=== PATIENT | male | born 1990 | race Hispanic/Latino ===

== ENCOUNTER 2017-02-12 12:26 | Emergency (ER) | payer MEDICAID, OTHER ==
[~2017-02-12] VITALS: Ht 167.6 cm; Wt 65.8 kg
[2017-02-12 12:29] VITALS: BP 150/100
[2017-02-12] MEDS ORDERED: LORazepam Inj 2mg/ml 1ml IV ONE (13:00)
[2017-02-12 13:34] LABS: BASOPHILS % (AUTO) 1.8 % (0.0-2.0); EOSINOPHILS % (AUTO) 0.9 % (0.0-3.0); LYMPHOCYTES % (AUTO) 20.3 % (20.0-45.0); MEAN CORPUSCULAR HEMOGLOBIN 28.4 PG (27.0-31.0); MEAN CORPUSCULAR HGB CONC 33.5 G/DL (32.0-36.0); MEAN CORPUSCULAR VOLUME 85 FL (80-99); MEAN PLATELET VOLUME 7.1 FL (6.5-10.1); MONOCYTES % (AUTO) 5.7 % (1.0-10.0); NEUTROPHILS % (AUTO) 71.3 % (45.0-75.0); PLATELET COUNT 236 K/UL (150-450); RED BLOOD COUNT 4.92 M/UL (4.70-6.10); RED CELL DISTRIBUTION WIDTH 12.1 % (11.6-14.8); WHITE BLOOD COUNT 5.5 K/UL (4.8-10.8)
[2017-02-12 13:55] LABS: TROPONIN I < 0.30 ng/mL (<=0.30)
[2017-02-12 13:59] LABS: ALANINE AMINOTRANSFERASE 12 U/L (3-41); ANION GAP 14 (5-15); ASPARTATE AMINO TRANSFERASE 18 U/L (5-40); CALCIUM 9.8 mg/dL (8.6-10.2); CARBON DIOXIDE 27 mEQ/L (20-30); CHLORIDE 99 mEQ/L (98-107); CREATININE 0.8 mg/dL (0.7-1.2); GLOMERULAR FILTRATION RATE > 60 mL/min (>60); HEMOLYSIS 6; POTASSIUM 3.4 mEQ/L (3.4-4.9); SODIUM 140 mEQ/L (135-145); TOTAL PROTEIN 7.1 g/dL (6.6-8.7)
[2017-02-12 14:09] LABS: CKMB 3.9 ng/mL (< 6.7)
--- NOTE | 2017-02-12 14:24 | Emergency Room Report ---
History of Present Illness General Chief Complaint: General Complaint Source: Patient Present Illness HPI 26YOM presents with chest pain s/p "doing meth for 3 days." Snorted it. Denies ETOH, other drugs. Denies other medical problems, CAD risk factors. Denies cocaine use. Denies SOB, fever/chills, abd pain, nausea/vomiting. Is in good health otherwise. Allergies: Coded Allergies: No Known Allergies (Unverified , 02/12/17) Patient History Past Medical History: none Past Surgical History: none Pertinent Family History: none Social History: Reports: drug use Immunizations: UTD Reviewed Nursing Documentation: PMH: Agreed, PSxH: Agreed Nursing Documentation-PMH Past Medical History: No Stated History Review of Systems All Other Systems: negative except mentioned in HPI Physical Exam Vital Signs Date Time Temp Pulse Resp B/P Pulse Ox O2 Delivery O2 Flow Rate FiO2 02/12/17 12:23 98.1 108 18 150/100 99 Room Air Sp02 EP Interpretation: reviewed, abnormal General Appearance: normal inspection, well appearing, no apparent distress, alert, GCS 15, non-toxic, other - calm, cooperative Head: normocephalic, atraumatic Eyes: bilateral eye EOMI, bilateral eye PERRL ENT: normal ENT inspection, hearing grossly normal, normal voice Neck: normal inspection, full range of motion, supple, no bony tend Respiratory: normal inspection, lungs clear, normal breath sounds, no respiratory distress, no retraction, no accessory muscle use, no wheezing, speaking full sentences, chest symmetrical, palpation of chest normal Cardiovascular #1: normal peripheral pulses, regular rate, rhythm, no edema, normal capillary refill Gastrointestinal: normal inspection, normal bowel sounds, non tender, soft, no guarding, no hernia Genitourinary: no CVA tenderness Musculoskeletal: normal inspection, back normal, normal range of motion, Oscar' s Sign negative Neurologic: normal inspection, alert, oriented x3, responsive, auto parts clerk III-XII nml as tested, motor strength/tone normal, speech normal Psychiatric: normal inspection, judgement/insight normal, mood/affect normal Skin: normal inspection, normal color, no rash Lymphatic: normal inspection Medical Decision Making Diagnostic Impression: Primary Impression: Chest pain Qualified Codes: R07.9 - Chest pain, unspecified Additional Impression: Methamphetamine abuse ER Course 26YOM with chest pain s/p meth use. Initial VS with tachycardia and hypertension likely d/t meth use No CAD risk factors ECG is NSR, no ischemia Mild rhabo with CK 213 but without accompanying SHIVA - was hydrated with NS IVF Troponin 0 Ativan given to counteract agitation effects of meth Patient observed with improvement/resolution of symptoms DC home Advised to STOP meth use in the future EKG Diagnostic Results Rate: normal Rhythm: NSR ST Segments: no acute changes ASA given to the pt in ED: No Rhythm Strip Diag. Results EP Interpretation: yes Rate: 68 Rhythm: NSR, no PVC's, no ectopy Chest X-Ray Diagnostic Results EP Interpretation: Yes Findings: no consolidation, no effusion, no pneumothorax, no acute cardiopulmonary disease Number of Views: 1 Last Vital Signs Date Time Temp Pulse Resp B/P Pulse Ox O2 Delivery O2 Flow Rate FiO2 02/12/17 12:29 98.1 18 150/100 99 Room Air 02/12/17 12:23 108 Status: improved Disposition: HOME, SELF-CARE [facility]errals: [facility]ERR[facility] (PCP) GIRISH MORILLO M.D. February 12, 2017 14:24
[2017-02-12 14:35] VITALS: BP 110/79
[2017-02-12 17:12] VITALS: BP 121/74
--- NOTE | 2017-02-13 10:55 | Diagnostic Imaging Report ---
Indication: Chest pain Technique: One view of the chest Comparison: 11/30/2008 Findings: Lungs and pleural spaces are clear. Heart size is normal. No significant change Impression: No acute process
== END 2017-02-12 17:17 | disposition home or self-care (01) ==
LOC: EDBD 12:26 → EMR 12:57
DX: R07.9 Chest pain, unspecified (principal); F15.10 Other stimulant abuse, uncomplicated
CPT/HCPCS: 36415; 71010; 80053; 80300; 82550; 82553; 84484; 85025; 93005; 96360; 96374

== ENCOUNTER 2017-07-05 10:53 | Emergency (ER) | payer OTHER ==
[~2017-07-05] VITALS: Ht 160 cm; Wt 59.0 kg
[2017-07-05] MEDS ORDERED: Lidocaine 2% Visc 15ml soln ORAL ONE (11:15)
[2017-07-05] MEDS ORDERED: Dicyclomine HCl 10mg/5ml oral soln ORAL ONE (11:15)
[2017-07-05] MEDS ORDERED: Mylanta II UD 30ml ORAL ONE (11:15)
[2017-07-05 11:37] LABS: APPEARANCE,URINE CLEAR; KETONES,URINE 1+ (NEGATIVE); LEUKOCYTE ESTERASE ,URINE 1+ (NEGATIVE); NITRITE,URINE NEGATIVE (NEGATIVE); PH,URINE 8 (4.5-8.0); PROTEIN,URINE NEGATIVE (NEGATIVE); UROBILINOGEN,URINE NORMAL MG/DL (0.0-1.0)
[2017-07-05 11:38] LABS: BASOPHILS % (AUTO) 1.6 % (0.0-2.0); EOSINOPHILS % (AUTO) 1.1 % (0.0-3.0); LYMPHOCYTES % (AUTO) 29.3 % (20.0-45.0); MEAN CORPUSCULAR HGB CONC 33.2 G/DL (32.0-36.0); MEAN CORPUSCULAR VOLUME 87 FL (80-99); MEAN PLATELET VOLUME 7.1 FL (6.5-10.1); MONOCYTES % (AUTO) 5.8 % (1.0-10.0); NEUTROPHILS % (AUTO) 62.1 % (45.0-75.0); PLATELET COUNT 273 K/UL (150-450); RED BLOOD COUNT 5.23 M/UL (4.70-6.10); RED CELL DISTRIBUTION WIDTH 11.8 % (11.6-14.8); WHITE BLOOD COUNT 6.4 K/UL (4.8-10.8)
[2017-07-05] MEDS ORDERED: PEPCID40 MG PO (11:41)
--- NOTE | 2017-07-05 11:42 | Emergency Room Report ---
History of Present Illness General Chief Complaint: Abdominal Pain Source: Patient Present Illness HPI 27-year-old male with history of alcohol abuse p/w abdominal pain one day. Patient states pain started after he drank a lot of alcohol, localized to epigastric area, non radiating, burning in nature, intermittent. No relieving or exacerbating factors. Severity is mild. Denies nausea vomiting diarrhea Denies fever, chills. No hx of abdominal surgeries. No hx of endoscopies/colonoscopies.. Patient states that he has felt a similar pain many times before Allergies: Coded Allergies: No Known Allergies (Unverified , 02/12/17) Patient History Past Medical History: see triage record Past Surgical History: none Pertinent Family History: none Reviewed Nursing Documentation: PMH: Agreed, PSxH: Agreed Nursing Documentation-PMH Past Medical History: No History, Except For Hx Gastrointestinal Problems: Yes - GERD Review of Systems All Other Systems: negative except mentioned in HPI Physical Exam Vital Signs Date Time Temp Pulse Resp B/P (MAP) Pulse Ox O2 Delivery O2 Flow Rate FiO2 07/05/17 10:57 98.2 98 20 132/89 99 Room Air Sp02 EP Interpretation: reviewed, normal General Appearance: alert, GCS 15, non-toxic, mild distress Head: normocephalic, atraumatic Eyes: bilateral eye normal inspection, bilateral eye PERRL, bilateral eye EOMI ENT: normal ENT inspection, normal pharynx, normal voice, moist mucus membranes Neck: normal inspection, full range of motion, supple Respiratory: normal inspection, lungs clear, normal breath sounds, no respiratory distress, no retraction, no wheezing, speaking full sentences, chest symmetrical Cardiovascular #1: normal inspection, regular rate, rhythm, no edema, normal capillary refill Cardiovascular #2: 2+ radial (R), 2+ radial (L) Gastrointestinal: soft, non-distended, no guarding, other - Soft, mild epigastric tenderness, Ibrahim sign negative, nontender all other quadrants Genitourinary: no CVA tenderness Musculoskeletal: normal inspection, back normal, normal range of motion, non- tender Neurologic: normal inspection, alert, oriented x3, responsive, motor strength/ tone normal, sensory intact, normal gait, speech normal Psychiatric: normal inspection, judgement/insight normal, memory normal Skin: normal inspection, normal color, no rash, warm/dry, well hydrated, normal turgor Medical Decision Making Diagnostic Impression: Primary Impression: Epigastric abdominal pain ER Course 27-year-old male history of alcohol abuse with epigastric abdominal pain Differential Diagnosis: Gastritis, gastroenteritis, UTI/pyelo At this time abdomen is soft nontender, not likely to have acute intra- abdominal surgical pathology, will hold CT for now. Plan: Basic labs, ua, ekg Pepcid, maalox, pain control, IVF ER course: Patient has remained stable during ED stay. Pain improved. Repeat abdominal exam is nontender. Tolerating PO Disposition: Patient is to be discharged to home. Prescriptions given are Pepcid Patient is instructed to follow up with their primary care doctor within 5 days. Strict return precautions discussed with patient such as fever, chills, worsening/severe abdominal pain, nausea, vomiting, black or bloody stools, which may indicate severe illness. Patient verbalizes understanding and agrees with plan. Please note that this Emergency Department Report was dictated using [employer] superintendent technology software, occasionally this can lead to erroneous entry secondary to interpretation by the dictation equipment Laboratory Tests Test 07/05/17 11:25 White Blood Count 6.4 K/UL (4.8-10.8) Red Blood Count 5.23 M/UL (4.70-6.10) Hemoglobin 15.2 G/DL (14.2-18.0) Hematocrit 45.7 % (42.0-52.0) Mean Corpuscular Volume 87 FL (80-99) Mean Corpuscular Hemoglobin 29.0 PG (27.0-31.0) Mean Corpuscular Hemoglobin Concent 33.2 G/DL (32.0-36.0) Red Cell Distribution Width 11.8 % (11.6-14.8) Platelet Count 273 K/UL (150-450) Mean Platelet Volume 7.1 FL (6.5-10.1) Neutrophils (%) (Auto) 62.1 % (45.0-75.0) Lymphocytes (%) (Auto) 29.3 % (20.0-45.0) Monocytes (%) (Auto) 5.8 % (1.0-10.0) Eosinophils (%) (Auto) 1.1 % (0.0-3.0) Basophils (%) (Auto) 1.6 % (0.0-2.0) Urine Color Pale yellow Urine Appearance Clear Urine pH 8 (4.5-8.0) Urine Specific [place] 1.010 (1.005-1.035) Urine Protein Negative (NEGATIVE) Urine Glucose (UA) Negative (NEGATIVE) Urine Ketones 1+ (NEGATIVE) H Urine Occult Blood Negative (NEGATIVE) Urine Nitrite Negative (NEGATIVE) Urine Bilirubin Negative (NEGATIVE) Urine Urobilinogen Normal MG/DL (0.0-1.0) Urine Leukocyte Esterase 1+ (NEGATIVE) H Urine RBC 0-2 /HPF (0 - 0) H Urine WBC 0-2 /HPF (0 - 0) Urine Squamous Epithelial Cells Occasional /LPF Urine Bacteria Occasional /HPF (NONE) Sodium Level 135 MMOL/L (136-145) L Potassium Level 3.1 MMOL/L (3.5-5.1) L Chloride Level 100 MMOL/L (98-107) Carbon Dioxide Level 27 MMOL/L (21-32) Anion Gap 8 (5-15) Blood Urea Nitrogen 13 mg/dL (7-18) Creatinine 0.8 MG/DL (0.55-1.30) Estimate Glomerular Filtration Rate > 60 mL/min (>60) Glucose Level 94 MG/DL (74-106) Calcium Level 9.7 MG/DL (8.5-10.1) Total Bilirubin 1.6 MG/DL (0.2-1.0) H Direct Bilirubin 0.4 MG/DL (0.0-0.3) H Aspartate Amino Transferase (AST) 14 U/L (15-37) L Alanine Aminotransferase (ALT) 16 U/L (12-78) Alkaline Phosphatase 66 U/L (46-116) Total Protein 7.3 G/DL (6.4-8.2) Albumin 4.5 G/DL (3.4-5.0) Globulin 2.8 g/dL Albumin/Globulin Ratio 1.6 (1.0-2.7) Lipase 87 U/L (73-393) Last Vital Signs Date Time Temp Pulse Resp B/P (MAP) Pulse Ox O2 Delivery O2 Flow Rate FiO2 07/05/17 10:57 98.2 98 20 132/89 99 Room Air Disposition: HOME, SELF-CARE Condition: Improved Scripts Famotidine (PEPCID) 40 Mg Tablet 40 MG PO DAILY for 14 Days, #14 TAB 0 Refills Prov: Retino,Clairose MSalmaD. 07/05/17 Referrals: [facility] CHOSEN [facility]/,REFERRING (PCP) Patient Instructions: Gastritis, Adult, Abdominal Pain, Adult Mike Ng M.D. Jul 05, 2017 11:42
[2017-07-05 11:52] LABS: BACTERIA,URINE OCCASIONAL /HPF; RBC,URINE 0-2 /HPF (0 - 0); SQUAMOUS EPITHELIAL CELL,UR OCCASIONAL /LPF (NONE/OCC); WBC,URINE 0-2 /HPF (0 - 0)
[2017-07-05 11:58] LABS: ALANINE AMINOTRANSFERASE 16 U/L (12-78); ALBUMIN/GLOBULIN RATIO 1.6 (1.0-2.7); ANION GAP 8 (5-15); ASPARTATE AMINO TRANSFERASE 14 U/L (15-37); CALCIUM 9.7 MG/DL (8.5-10.1); CARBON DIOXIDE 27 MMOL/L (21-32); CHLORIDE 100 MMOL/L (98-107); CREATININE 0.8 MG/DL (0.55-1.30); GLOMERULAR FILTRATION RATE > 60 mL/min (>60); LIPASE 87 U/L (73-393); POTASSIUM 3.1 MMOL/L (3.5-5.1); SODIUM 135 MMOL/L (136-145); TOTAL PROTEIN 7.3 G/DL (6.4-8.2)
[2017-07-05 12:11] LABS: BILIRUBIN,DIRECT 0.4 MG/DL (0.0-0.3)
[2017-07-05 12:38] VITALS: BP 132/84
[2017-07-05 13:00] VITALS: BP 132/84
== END 2017-07-05 13:02 | disposition home or self-care (01) ==
LOC: EMR 11:17
DX: R10.13 Epigastric pain (principal); K21.9 Gastro-esophageal reflux disease without esophagitis
CPT/HCPCS: 36415; 80053; 81003; 82248; 83690; 85025; 96361; 96374; 96375; 99284; J2405; S0028

== ENCOUNTER 2017-09-28 11:16 | Emergency (ER) | payer OTHER ==
[~2017-09-28] VITALS: Ht 160 cm; Wt 65.8 kg
[~2017-09-28 11:16] MED LIST: PEPCID40 MG PO
[2017-09-28] MEDS ORDERED: NKM (11:26)
[2017-09-28 12:53] LABS: BASOPHILS % (AUTO) 2.4 % (0.0-2.0); EOSINOPHILS % (AUTO) 2.6 % (0.0-3.0); HEMATOCRIT 41.5 % (42.0-52.0); HEMOGLOBIN 13.7 G/DL (14.2-18.0); LYMPHOCYTES % (AUTO) 18.9 % (20.0-45.0); MEAN CORPUSCULAR VOLUME 87 FL (80-99); MONOCYTES % (AUTO) 7.1 % (1.0-10.0); NEUTROPHILS % (AUTO) 69.1 % (45.0-75.0); PLATELET COUNT 306 K/UL (150-450); RED BLOOD COUNT 4.79 M/UL (4.70-6.10); RED CELL DISTRIBUTION WIDTH 12.3 % (11.6-14.8); WHITE BLOOD COUNT 6.4 K/UL (4.8-10.8)
[2017-09-28 13:06] LABS: ANION GAP 9 mmol/L (5-15); BLOOD UREA NITROGEN 11 mg/dL (7-18); CALCIUM 8.3 MG/DL (8.5-10.1); CARBON DIOXIDE 27 MMOL/L (21-32); CHLORIDE 107 MMOL/L (98-107); POTASSIUM 3.9 MMOL/L (3.5-5.1); SODIUM 143 MMOL/L (136-145)
[2017-09-28 13:10] LABS: ALANINE AMINOTRANSFERASE 21 U/L (12-78); ALBUMIN 3.9 G/DL (3.4-5.0); ALBUMIN/GLOBULIN RATIO 1.3 (1.0-2.7); ALKALINE PHOSPHATASE 74 U/L (46-116); ASPARTATE AMINO TRANSFERASE 13 U/L (15-37); BILIRUBIN,TOTAL 0.5 MG/DL (0.2-1.0); CREATINE KINASE 157 U/L (26-308)
[2017-09-28 13:16] LABS: APPEARANCE,URINE CLEAR; BILIRUBIN, URINE NEGATIVE (NEGATIVE); GLUCOSE, URINE (UA) NEGATIVE (NEGATIVE); KETONES,URINE NEGATIVE (NEGATIVE); LEUKOCYTE ESTERASE ,URINE NEGATIVE (NEGATIVE); NITRITE,URINE NEGATIVE (NEGATIVE); PH,URINE 6.5 (4.5-8.0); PROTEIN,URINE NEGATIVE (NEGATIVE); UROBILINOGEN,URINE 4 MG/DL (0.0-1.0)
[2017-09-28 13:21] LABS: COLOR,URINE YELLOW
[2017-09-28] MEDS ORDERED: TYLENOL EXTRA500 MG ORAL (14:17)
[2017-09-28] MEDS ORDERED: ZOFRAN4 M3 ORAL (14:17)
[2017-09-28 14:35] VITALS: BP 138/82
--- NOTE | 2017-09-28 18:39 | Emergency Room Report ---
History of Present Illness General Chief Complaint: Substance Abuse Source: Patient Present Illness HPI The patient is a 27-year-old male presenting for feelings of fatigue and body pain. He states that he used methamphetamine as well as marijuana and drank alcohol yesterday. Symptoms began after that. Total body pain described as an 8/10 dull ache. No known provoking or relieving factors. He denies any medical history denies other symptoms including nausea, vomiting, fever, chills , shortness of breath, chest pain, abdominal pain, diarrhea Allergies: Coded Allergies: No Known Allergies (Unverified , 02/12/17) Patient History Past Medical History: see triage record Pertinent Family History: none Social History: Reports: alcohol use, drug use - methamphetamine Reviewed Nursing Documentation: PMH: Agreed, PSxH: Agreed Nursing Documentation-PMH Hx Gastrointestinal Problems: Yes - GERD Review of Systems All Other Systems: negative except mentioned in HPI Physical Exam Vital Signs Date Time Temp Pulse Resp B/P (MAP) Pulse Ox O2 Delivery O2 Flow Rate FiO2 09/28/17 11:22 98.4 93 21 126/87 100 Room Air Sp02 EP Interpretation: reviewed, normal General Appearance: no apparent distress, alert, GCS 15, non-toxic, lethargic Head: normocephalic, atraumatic Eyes: bilateral eye normal inspection, bilateral eye PERRL ENT: hearing grossly normal, normal pharynx, no angioedema, normal voice Neck: full range of motion, supple/symm/no masses Respiratory: chest non-tender, lungs clear, normal breath sounds, speaking full sentences Cardiovascular #1: regular rate, rhythm, no edema Musculoskeletal: back normal, gait/station normal, normal range of motion, non- tender Neurologic: alert, oriented x3, responsive, motor strength/tone normal, sensory intact, speech normal Psychiatric: judgement/insight normal, memory normal, mood/affect normal, no suicidal/homicidal ideation Skin: normal color, no rash, warm/dry, well hydrated Medical Decision Making PA Attestation Dr. Singletary is my supervising physician. Patient management was discussed with my supervising physician Diagnostic Impression: Primary Impression: Methamphetamine abuse ER Course The patient is a 27-year-old male presenting for feelings of fatigue and body pain. Differential diagnoses considered but not limited to Drug use, alcohol intoxication, influenza, dehydration, rhabdomyolysis Physical exam: vitals WNL. Afebrile. NAD lethargic HEENT exam unremarkable RRR Lungs are clear to auscultation bilaterally. Abdomen soft and nontender Blood work unremarkable. Urine drug screen positive for amphetamine and marijuana The patient is given IV fluids and Zofran and is feeling better. To be discharged home and is told to stop using drugs ER precautions given Laboratory Tests Test 09/28/17 12:25 09/28/17 12:28 White Blood Count 6.4 K/UL (4.8-10.8) Red Blood Count 4.79 M/UL (4.70-6.10) Hemoglobin 13.7 G/DL (14.2-18.0) L Hematocrit 41.5 % (42.0-52.0) L Mean Corpuscular Volume 87 FL (80-99) Mean Corpuscular Hemoglobin 28.5 PG (27.0-31.0) Mean Corpuscular Hemoglobin Concent 32.9 G/DL (32.0-36.0) Red Cell Distribution Width 12.3 % (11.6-14.8) Platelet Count 306 K/UL (150-450) Mean Platelet Volume 6.2 FL (6.5-10.1) L Neutrophils (%) (Auto) 69.1 % (45.0-75.0) Lymphocytes (%) (Auto) 18.9 % (20.0-45.0) L Monocytes (%) (Auto) 7.1 % (1.0-10.0) Eosinophils (%) (Auto) 2.6 % (0.0-3.0) Basophils (%) (Auto) 2.4 % (0.0-2.0) H Prothrombin Time 10.4 SEC (9.30-11.50) Prothrombin Time INR 1.0 (0.9-1.1) PTT 32 SEC (23-33) Sodium Level 143 MMOL/L (136-145) Potassium Level 3.9 MMOL/L (3.5-5.1) Chloride Level 107 MMOL/L (98-107) Carbon Dioxide Level 27 MMOL/L (21-32) Anion Gap 9 mmol/L (5-15) Blood Urea Nitrogen 11 mg/dL (7-18) Creatinine 1.0 MG/DL (0.55-1.30) Estimate Glomerular Filtration Rate > 60 mL/min (>60) Glucose Level 96 MG/DL (74-106) Calcium Level 8.3 MG/DL (8.5-10.1) L Total Bilirubin 0.5 MG/DL (0.2-1.0) Aspartate Amino Transferase (AST) 13 U/L (15-37) L Alanine Aminotransferase (ALT) 21 U/L (12-78) Alkaline Phosphatase 74 U/L (46-116) Total Creatine Kinase 157 U/L (26-308) Troponin I 0.007 ng/mL (0.000-0.056) Total Protein 7.0 G/DL (6.4-8.2) Albumin 3.9 G/DL (3.4-5.0) Globulin 3.1 g/dL Albumin/Globulin Ratio 1.3 (1.0-2.7) Lipase 129 U/L (73-393) Serum Alcohol 4 mg/dL Urine Color Yellow Urine Appearance Clear Urine pH 6.5 (4.5-8.0) Urine Specific [place] 1.020 (1.005-1.035) Urine Protein Negative (NEGATIVE) Urine Glucose (UA) Negative (NEGATIVE) Urine Ketones Negative (NEGATIVE) Urine Occult Blood Negative (NEGATIVE) Urine Nitrite Negative (NEGATIVE) Urine Bilirubin Negative (NEGATIVE) Urine Urobilinogen 4 MG/DL (0.0-1.0) H Urine Leukocyte Esterase Negative (NEGATIVE) Urine Opiates Screen Negative (NEGATIVE) Urine Barbiturates Screen Negative (NEGATIVE) Phencyclidine (PCP) Screen Negative (NEGATIVE) Urine Amphetamines Screen Positive (NEGATIVE) H Urine Benzodiazepines Screen Negative (NEGATIVE) Urine Cocaine Screen Negative (NEGATIVE) Urine Marijuana (THC) Screen Positive (NEGATIVE) H Lab Results Impression Blood work unremarkable. Urine drug screen positive for amphetamine and marijuana Last Vital Signs Date Time Temp Pulse Resp B/P (MAP) Pulse Ox O2 Delivery O2 Flow Rate FiO2 09/28/17 14:35 89 16 138/82 100 Room Air 09/28/17 14:35 98.4 Status: improved Disposition: HOME, SELF-CARE Condition: Improved Scripts Acetaminophen* (TYLENOL EXTRA STRENGTH*) 500 Mg Tablet 500 MG ORAL Q8H Y for Prn Headache/Temp > 101, #30 TAB 0 Refills Prov: NGOZI FLANAGAN P.A. 09/28/17 Ondansetron* (ZOFRAN*) 4 Mg Tablet 4 MG ORAL Q6H Y for Nausea & Vomiting, #10 TAB Prov: NGOZI FLANAGAN 09/28/17 [facility]errals: [facility] (PCP) Patient Instructions: Substance Use Disorder, Stimulant Use Disorder- Methamphetamines Additional Instructions: I discussed my findings with the patient. All questions and concerns have been answered. Treatment and medication compliance have been addressed.Return to ED if symptoms worsen, new symptoms arise, or if needed for any reason. Patient verbalized understanding of discharge instructions. The patient was told to stop using drugs immediately. NGOZI FLANAGAN Sep 28, 2017 18:39
== END 2017-09-28 14:35 | disposition home or self-care (01) ==
LOC: EMR 11:45
DX: F15.10 Other stimulant abuse, uncomplicated (principal); K21.9 Gastro-esophageal reflux disease without esophagitis
CPT/HCPCS: 36415; 80053; 80307; 80329; 81003; 82550; 83690; 84484; 85025; 85610; 85730; 96374; 96375; 99284; J2405

== ENCOUNTER 2017-10-11 07:50 | Emergency (ER) | payer OTHER ==
[~2017-10-11] VITALS: Ht 167.6 cm; Wt 57.2 kg
[~2017-10-11 07:50] MED LIST changes: +NKM; +TYLENOL EXTRA500 MG ORAL; +ZOFRAN4 M3 ORAL
[2017-10-11] MEDS ORDERED: Norco 5mg/325mg tab ORAL ONE (08:15)
[2017-10-11 08:22] VITALS: BP 118/67
--- NOTE | 2017-10-11 08:22 | Emergency Room Report ---
History of Present Illness General Chief Complaint: Multiple Trauma/Fall Source: Patient Present Illness HPI 27-year-old male with pain to right-sided chest after accidental slip and fall last night. Patient had allegedly unmask, drink alcohol, was chasing after a fall fell over a fence. Complaining of multiple abrasions and pain to right-sided chest, but denies associated shortness of breath, fever or chills. denies trauma to head, other extremities or abdominal pain Allergies: Coded Allergies: No Known Allergies (Unverified , 02/12/17) Patient History Past Medical History: none Past Surgical History: none Pertinent Family History: none Social History: Reports: smoking, alcohol use, drug use Immunizations: UTD Nursing Documentation-[facility] Past Medical History: No Stated History Hx Gastrointestinal Problems: Yes - GERD Review of Systems All Other Systems: negative except mentioned in HPI Physical Exam Vital Signs Date Time Temp Pulse Resp B/P (MAP) Pulse Ox O2 Delivery O2 Flow Rate FiO2 10/11/17 08:03 97.9 78 14 117/70 98 Room Air Sp02 EP Interpretation: reviewed, normal General Appearance: normal inspection, well appearing, no apparent distress, alert, GCS 15, non-toxic Head: normocephalic, atraumatic Eyes: bilateral eye PERRL, bilateral eye EOMI ENT: normal ENT inspection, hearing grossly normal, normal pharynx, no angioedema, normal voice, TMs + canals normal, uvula midline, moist mucus membranes Neck: normal inspection, full range of motion, supple, thyroid normal, no meningismus, no bony tend Respiratory: normal inspection, lungs clear, normal breath sounds, no rhonchi, no respiratory distress, no retraction, no accessory muscle use, no wheezing, speaking full sentences, other - Multiple areas of abrasions to right-sided chest, no flail chest or abnormal movement. , chest symmetrical Cardiovascular #1: regular rate, rhythm, no edema, no JVD, normal capillary refill Gastrointestinal: normal inspection, normal bowel sounds, non tender, soft, no mass, no peritonitis, non-distended, no guarding, no hernia, no pulsatile mass, other - No tenderness to palpation on exam of abdomen Genitourinary: no CVA tenderness Musculoskeletal: normal inspection, back normal, normal range of motion, no calf tenderness, pelvis stable, Oscar's Sign negative Neurologic: normal inspection, alert, oriented x3, responsive, contact person III-XII nml as tested, motor strength/tone normal, cerebellar normal, normal gait, speech normal Psychiatric: normal inspection, judgement/insight normal, mood/affect normal, no suicidal/homicidal ideation, no delusions Skin: normal inspection, normal color, no rash Lymphatic: normal inspection, no adenopathy Medical Decision Making Diagnostic Impression: Primary Impression: Abrasion of chest wall Qualified Codes: S20.311A - Abrasion of right front wall of thorax, initial encounter Additional Impression: Rib fracture Qualified Codes: S22.31XA - Fracture of one rib, right side, initial encounter for closed fracture ER Course posterior right 10th displaced rib fracture No pneumothorax T#3 as needed for pain Bacitracin applied to abrasions once daily for 7 days ER course: Patient has remained stable during ED stay. Disposition: Patient is to be discharged to home. Prescriptions given are T#3, bacitracin Patient is instructed to follow up with their primary care doctor within 5 days. Patient is instructed to follow up with *specialist within 3 days. Strict return precautions discussed with patient such as fever, chills, worsening/severe pain, nausea, vomiting, which may indicate severe illness. Patient verbalizes understanding and agrees with plan. Please note that this Emergency Department Report was dictated using [employer] laborer technology software, occasionally this can lead to erroneous entry secondary to interpretation by the dictation equipment Last Vital Signs Date Time Temp Pulse Resp B/P (MAP) Pulse Ox O2 Delivery O2 Flow Rate FiO2 10/11/17 08:03 97.9 78 14 117/70 98 Room Air Status: improved Disposition: HOME, SELF-CARE Scripts Bacitracin Zinc* (BACITRACIN ZINC*) 1 Each Packet 1 APPLIC TOPIC BID for 7 Days, #7 PACKET Prov: GIRISH MORILLO M.D. 10/11/17 Acetaminophen With Codeine (T#3) (TYLENOL #3 TAB*) Y Tab 1 TAB ORAL Q8H Y for rib pain for 7 Days, #20 TAB Prov: GIRISH MORILLO M.D. 10/11/17 Referrals: NOT CHOSEN [facility]/,REFERRING (PCP) GIRISH MORILLO M.D. Oct 11, 2017 08:22
[2017-10-11] MEDS ORDERED: BACITRACIN ZIN1 EACH TOPIC (08:56)
[2017-10-11] MEDS ORDERED: ACETAMINOPHEN-1 EAC1 ORAL (08:56)
--- NOTE | 2017-10-11 09:04 | Diagnostic Imaging Report ---
Indication: Pain Technique: XRAY Ribs w/PA CXR Uni R Comparison: None Findings: There is a mildly displaced fracture of the right posterolateral 10th rib. Questionable nondisplaced fracture of the right posterior 11th rib however this is not definitively confirmed on additional views. There is no pneumothorax. Heart size within normal limits. No focal airspace consolidation. No pleural effusion. Impression: Mildly displaced fracture of the right posterolateral 10th rib. Question nondisplaced fracture of the right 11th rib. No pneumothorax.
[2017-10-11 09:10] VITALS: BP 109/69
[2017-10-11] MEDS ORDERED: Naloxone 0.4mg/ml Inj IM ONE (09:15)
== END 2017-10-11 09:10 | disposition home or self-care (01) ==
LOC: EMR 08:19
DX: S20.311A Abrasion of right front wall of thorax, initial encounter (principal); S22.31XA Fracture of one rib, right side, initial encounter for closed fracture; W01.0XXA Fall on same level from slipping, tripping and stumbling without subsequent striking against object, initial encounter; Y92.89 Other specified places as the place of occurrence of the external cause; K21.9 Gastro-esophageal reflux disease without esophagitis
CPT/HCPCS: 99284

== ENCOUNTER 2017-10-16 16:04 | Emergency (ER) | payer OTHER ==
[~2017-10-16] VITALS: Ht 172.7 cm; Wt 63.5 kg
[~2017-10-16 16:04] MED LIST changes: +ACETAMINOPHEN-1 EAC1 ORAL; +BACITRACIN ZIN1 EACH TOPIC
--- NOTE | 2017-10-16 16:21 | Emergency Room Report ---
History of Present Illness General Chief Complaint: Pain Source: Patient Present Illness HPI Patient is a 27-year-old male who presents today with complaints of right-sided rib pain. He was seen in ED on 10/11/2017 status post mechanical fall and he was on a rib fractures and discharged home with Tylenol 3. Patient states he last Tylenol with codeine at 2 AM yesterday morning. He states pain is 8/10 in severity. Patient has a history of alcohol and methamphetamine abuse. He states he last drank alcohol the night of the incident and lasted he used amphetamines at that time as well. She has no significant medical problems. Allergies: Coded Allergies: No Known Allergies (Unverified , 02/12/17) Patient History Reviewed Nursing Documentation: PMH: Agreed, PSxH: Agreed Nursing Documentation-PMH Hx Gastrointestinal Problems: Yes - GERD Review of Systems Musculoskeletal: Reports: other - right rib pain Physical Exam Vital Signs Date Time Temp Pulse Resp B/P (MAP) Pulse Ox O2 Delivery O2 Flow Rate FiO2 10/16/17 15:57 97.9 86 16 128/72 100 Room Air Sp02 EP Interpretation: reviewed, normal General Appearance: no apparent distress, alert, GCS 15, non-toxic Head: normocephalic, atraumatic Eyes: bilateral eye normal inspection, bilateral eye PERRL ENT: hearing grossly normal, normal pharynx, no angioedema, normal voice Neck: full range of motion, supple/symm/no masses Respiratory: chest non-tender, lungs clear, normal breath sounds, speaking full sentences Cardiovascular #1: regular rate, rhythm, no edema Cardiovascular #2: 2+ carotid (R), 2+ carotid (L), 2+ radial (R), 2+ radial (L) , 2+ dorsalis pedis (R), 2+ dorsalis pedis (L) Gastrointestinal: normal bowel sounds, non tender, soft, non-distended, no guarding, no rebound Rectal: deferred Genitourinary: normal inspection, no CVA tenderness Musculoskeletal: back normal, gait/station normal, normal range of motion, non- tender, calf tenderness Neurologic: alert, oriented x3, responsive, motor strength/tone normal, sensory intact, speech normal Psychiatric: judgement/insight normal, memory normal, mood/affect normal, no suicidal/homicidal ideation Reflexes: 3+ bicep (R), 3+ bicep (L), 3+ tricep (R), 3+ tricep (L), 3+ knee (R) , 3+ knee (L) Skin: normal color, no rash, warm/dry, well hydrated, other - well healing abrasions to right anterior chest wall Lymphatic: no adenopathy Medical Decision Making PA Attestation Supervising physician is Dr. Singletary Diagnostic Impression: Primary Impression: Rib fracture Additional Impressions: Alcohol abuse Methamphetamine abuse ER Course Patient was diagnosed of her pressure at last visit and discharge him with Tylenol 3. Patient is given Toradol in the ED and instructed to continue taking Tylenol 3 at home with. Vitals are within normal limits. Patient is instructed to avoid amphetamines and alcohol in the future. Patient expresses desire to quit. Resources are given. Instructed to follow up Saturday for reevaluation. Patient understands and is agreeable with plan. Last Vital Signs Date Time Temp Pulse Resp B/P (MAP) Pulse Ox O2 Delivery O2 Flow Rate FiO2 10/16/17 15:57 97.9 86 16 128/72 100 Room Air Status: improved Disposition: HOME, SELF-CARE Condition: Stable Patient Instructions: Rib Fracture, [id number] Lyudmila Ballesteros Oct 16, 2017 16:21
[2017-10-16] MEDS ORDERED: Ketorolac 60mg Inj IM ONE (16:30)
[2017-10-16 17:00] VITALS: BP 132/75
== END 2017-10-16 17:00 | disposition home or self-care (01) ==
LOC: EDBD 16:04 → EMR 16:27
DX: S22.31XA Fracture of one rib, right side, initial encounter for closed fracture (principal); X58.XXXA Exposure to other specified factors, initial encounter; Y92.9 Unspecified place or not applicable; F10.10 Alcohol abuse, uncomplicated; F15.10 Other stimulant abuse, uncomplicated; K21.9 Gastro-esophageal reflux disease without esophagitis
CPT/HCPCS: 96372; 99283

== ENCOUNTER 2017-12-12 00:30 | Emergency (ER) | payer OTHER ==
[~2017-12-12] VITALS: Ht 162.6 cm; Wt 68.0 kg
[2017-12-12] MEDS ORDERED: DiphenhydrAMINE 50mg/ml Inj IVP ONE (01:00)
[2017-12-12] MEDS ORDERED: Mylanta II UD 30ml ORAL ONE (01:00)
[2017-12-12 01:10] LABS: APPEARANCE,URINE CLEAR; BILIRUBIN, URINE NEGATIVE (NEGATIVE); COLOR,URINE PALE YELLOW; GLUCOSE, URINE (UA) NEGATIVE (NEGATIVE); KETONES,URINE NEGATIVE (NEGATIVE); LEUKOCYTE ESTERASE ,URINE NEGATIVE (NEGATIVE); NITRITE,URINE NEGATIVE (NEGATIVE); PH,URINE 6 (4.5-8.0); PROTEIN,URINE NEGATIVE (NEGATIVE); UROBILINOGEN,URINE NORMAL MG/DL (0.0-1.0)
[2017-12-12 01:12] LABS: EOSINOPHILS % (AUTO) 1.3 % (0.0-3.0); HEMATOCRIT 45.3 % (42.0-52.0); HEMOGLOBIN 15.3 G/DL (14.2-18.0); LYMPHOCYTES % (AUTO) 21.1 % (20.0-45.0); MEAN CORPUSCULAR VOLUME 86 FL (80-99); MONOCYTES % (AUTO) 6.1 % (1.0-10.0); NEUTROPHILS % (AUTO) 70.6 % (45.0-75.0); PLATELET COUNT 234 K/UL (150-450); RED BLOOD COUNT 5.27 M/UL (4.70-6.10); RED CELL DISTRIBUTION WIDTH 12.8 % (11.6-14.8)
[2017-12-12 01:25] LABS: ANION GAP 6 mmol/L (5-15); BLOOD UREA NITROGEN 13 mg/dL (7-18); CALCIUM 8.7 MG/DL (8.5-10.1); CARBON DIOXIDE 30 MMOL/L (21-32); CHLORIDE 103 MMOL/L (98-107); CREATININE 0.9 MG/DL (0.55-1.30); POTASSIUM 3.6 MMOL/L (3.5-5.1); SODIUM 139 MMOL/L (136-145)
[2017-12-12 01:30] LABS: ALANINE AMINOTRANSFERASE 23 U/L (12-78); ALBUMIN/GLOBULIN RATIO 1.2 (1.0-2.7); ALKALINE PHOSPHATASE 115 U/L (46-116); ASPARTATE AMINO TRANSFERASE 13 U/L (15-37); BILIRUBIN,TOTAL 0.3 MG/DL (0.2-1.0); CREATINE KINASE 148 U/L (26-308)
[2017-12-12 01:36] VITALS: BP 132/83
--- NOTE | 2017-12-12 02:11 | Emergency Room Report ---
History of Present Illness General Chief Complaint: Chest Pain Source: Patient Present Illness HPI Patient presents with chest pain. He has felt this way in the past associated with amphetamine use but denies this now. He started feeling this way several hours ago. He tried some marijuana but it did not help. The pain is more burning pressure substernal. Not radiate. Rated 5/10 to me. He feels weak. Slight nausea. No fevers or cough. He has some dyspnea. He is under stress at this time as his girlfriend was kicked out of the house because her dad found them together. No other meds taken. No headache, rashes, joint pain, calf tenderness, dysuria, bleeding. No diabetes, family history, HTN. + smoker Allergies: Coded Allergies: No Known Allergies (Unverified , 02/12/17) Patient History Past Medical History: see triage record Social History: Reports: smoking, drug use - thc, meth in past Social History Narrative works at restaurant Reviewed Nursing Documentation: PMH: Agreed; PSxH: Agreed Nursing Documentation-PMH Hx Gastrointestinal Problems: Yes - GERD, gastritis Review of Systems All Other Systems: negative except mentioned in HPI Physical Exam Vital Signs Date Time Temp Pulse Resp B/P (MAP) Pulse Ox O2 Delivery O2 Flow Rate FiO2 12/12/17 00:33 98.3 118 18 143/82 98 Room Air 98.2 Sp02 EP Interpretation: reviewed, normal General Appearance: well appearing, no apparent distress, GCS 15 Head: normocephalic Eyes: bilateral eye PERRL, bilateral eye Scleral Injection ENT: moist mucus membranes Neck: supple Respiratory: chest non-tender, lungs clear, normal breath sounds Cardiovascular #1: regular rate, rhythm Cardiovascular #2: 2+ radial (R) Gastrointestinal: normal inspection, normal bowel sounds, non tender, no mass, non-distended Musculoskeletal: back normal, gait/station normal, normal range of motion, no calf tenderness Neurologic: alert, oriented x3, grossly normal Psychiatric: anxious Skin: normal inspection, warm/dry Medical Decision Making Diagnostic Impression: Primary Impression: Chest pain Qualified Codes: R07.9 - Chest pain, unspecified ER Course Patient presents with chest pain. DDx: anxiety, GERD, gastritis, cardiac cause amongst others. History and exam against PE. Denies meth at this time. Evaluation with EKG, CXR and labs. Treatment with benadryl, zofran, and [place]. EKG without injury. CXR normal. Labs normal with negative troponin. Tox + THC. Patient improved with treatment. Discussed possible GI cause and stress. Patient stable for outpatient observation and treatment. Laboratory Tests Test 12/12/17 01:00 White Blood Count 11.0 K/UL (4.8-10.8) H Red Blood Count 5.27 M/UL (4.70-6.10) Hemoglobin 15.3 G/DL (14.2-18.0) Hematocrit 45.3 % (42.0-52.0) Mean Corpuscular Volume 86 FL (80-99) Mean Corpuscular Hemoglobin 29.1 PG (27.0-31.0) Mean Corpuscular Hemoglobin Concent 33.8 G/DL (32.0-36.0) Red Cell Distribution Width 12.8 % (11.6-14.8) Platelet Count 234 K/UL (150-450) Mean Platelet Volume 7.5 FL (6.5-10.1) Neutrophils (%) (Auto) 70.6 % (45.0-75.0) Lymphocytes (%) (Auto) 21.1 % (20.0-45.0) Monocytes (%) (Auto) 6.1 % (1.0-10.0) Eosinophils (%) (Auto) 1.3 % (0.0-3.0) Basophils (%) (Auto) 1.0 % (0.0-2.0) Urine Color Pale yellow Urine Appearance Clear Urine pH 6 (4.5-8.0) Urine Specific [place] 1.010 (1.005-1.035) Urine Protein Negative (NEGATIVE) Urine Glucose (UA) Negative (NEGATIVE) Urine Ketones Negative (NEGATIVE) Urine Occult Blood Negative (NEGATIVE) Urine Nitrite Negative (NEGATIVE) Urine Bilirubin Negative (NEGATIVE) Urine Urobilinogen Normal MG/DL (0.0-1.0) Urine Leukocyte Esterase Negative (NEGATIVE) Sodium Level 139 MMOL/L (136-145) Potassium Level 3.6 MMOL/L (3.5-5.1) Chloride Level 103 MMOL/L (98-107) Carbon Dioxide Level 30 MMOL/L (21-32) Anion Gap 6 mmol/L (5-15) Blood Urea Nitrogen 13 mg/dL (7-18) Creatinine 0.9 MG/DL (0.55-1.30) Estimate Glomerular Filtration Rate > 60 mL/min (>60) Glucose Level 123 MG/DL (74-106) H Calcium Level 8.7 MG/DL (8.5-10.1) Total Bilirubin 0.3 MG/DL (0.2-1.0) Aspartate Amino Transferase (AST) 13 U/L (15-37) L Alanine Aminotransferase (ALT) 23 U/L (12-78) Alkaline Phosphatase 115 U/L (46-116) Total Creatine Kinase 148 U/L (26-308) Troponin I 0.000 ng/mL (0.000-0.056) Total Protein 7.4 G/DL (6.4-8.2) Albumin 4.0 G/DL (3.4-5.0) Globulin 3.4 g/dL Albumin/Globulin Ratio 1.2 (1.0-2.7) Urine Opiates Screen Negative (NEGATIVE) Urine Barbiturates Screen Negative (NEGATIVE) Phencyclidine (PCP) Screen Negative (NEGATIVE) Urine Amphetamines Screen Negative (NEGATIVE) Urine Benzodiazepines Screen Negative (NEGATIVE) Urine Cocaine Screen Negative (NEGATIVE) Urine Marijuana (THC) Screen Positive (NEGATIVE) H EKG Diagnostic Results Rate: normal Rhythm: NSR ST Segments: no acute changes Rhythm Strip Diag. Results EP Interpretation: yes Rhythm: NSR, no PVC's, no ectopy Chest X-Ray Diagnostic Results Chest X-Ray Diagnostic Results : Chest X-Ray Ordered: Yes # of Views/Limited/Complete: 1 View Indication: Chest Pain EP Interpretation: Yes Interpretation: no consolidation, no effusion, no pneumothorax Impression: No acute disease Electronically Signed by: Perico Roper MD Last Vital Signs Date Time Temp Pulse Resp B/P (MAP) Pulse Ox O2 Delivery O2 Flow Rate FiO2 12/12/17 03:01 98.2 77 16 115/79 99 Room Air 98.2 Status: improved Disposition: HOME, SELF-CARE Condition: Improved Scripts Diphenhydramine Hcl* (BENADRYL*) 25 Mg Capsule 25 MG ORAL Q6H PRN for Itching, #14 CAP Prov: Perico Roper M.D. 12/12/17 Acetaminophen (Tylenol) 325 Mg Tablet 650 MG ORAL Q6H PRN for Prn Pain/Headache/Temp > 101, #30 TAB 0 Refills Prov: Perico Roper M.D. 12/12/17 Famotidine (PEPCID) 20 Mg Tablet 20 MG ORAL DAILY, #30 TAB 0 Refills Prov: Perico Roper M.D. 12/12/17 Referrals: [facility] (PCP) Perico Roper M.D. Dec 12, 2017 02:11
[2017-12-12 02:45] VITALS: BP 115/79
[2017-12-12] MEDS ORDERED: BENADRYL25 MG ORAL (02:46)
[2017-12-12] MEDS ORDERED: PEPCID20 MG ORAL (02:46)
[2017-12-12] MEDS ORDERED: TYLENOL325 MG ORAL (02:46)
[2017-12-12 03:01] VITALS: BP 115/79
--- NOTE | 2017-12-12 09:51 | Diagnostic Imaging Report ---
Indication: Chest pain Technique: One view of the chest Comparison: 02/12/2017 Findings: Lungs and pleural spaces are clear. Heart size is normal. No significant interim change Impression: No acute process
== END 2017-12-12 03:00 | disposition home or self-care (01) ==
LOC: EMR 00:52
DX: R07.9 Chest pain, unspecified (principal); K21.9 Gastro-esophageal reflux disease without esophagitis
CPT/HCPCS: 36415; 71045; 80053; 80307; 81003; 82550; 84484; 85025; 93005; 96374; 96375; 99284; J1200; J2405

== ENCOUNTER 2017-12-25 23:14 | Emergency (ER) | payer OTHER ==
[~2017-12-25] VITALS: Ht 160 cm; Wt 64.9 kg
[~2017-12-25 23:14] MED LIST changes: +BENADRYL25 MG ORAL; +PEPCID20 MG ORAL; +TYLENOL325 MG ORAL
--- NOTE | 2017-12-25 23:50 | Emergency Room Report ---
History of Present Illness General Chief Complaint: Abdominal Pain Source: Patient Present Illness HPI 27-year-old male history of gastritis p/w abdominal pain for one day. Patient states that pain is localized to left abdomen, non radiating, sharp in nature, intermittent. No relieving or exacerbating factors. Has nausea but no vomiting Had one bowel movement today but no diarrhea Denies fever, chills. No hx of abdominal surgeries. No hx of endoscopies/colonoscopies. Admits to smoking marijuana and drinking alcohol prior to arrival Allergies: Coded Allergies: No Known Allergies (Unverified , 02/12/17) Patient History Past Medical History: see triage record Past Surgical History: none Pertinent Family History: none Reviewed Nursing Documentation: PMH: Agreed; PSxH: Agreed Nursing Documentation-PMH Hx Gastrointestinal Problems: Yes - GERD, gastritis Review of Systems All Other Systems: negative except mentioned in HPI Physical Exam Vital Signs Date Time Temp Pulse Resp B/P (MAP) Pulse Ox O2 Delivery O2 Flow Rate FiO2 12/25/17 23:29 98.4 88 16 126/82 98 Room Air 98.4 Sp02 EP Interpretation: reviewed, normal General Appearance: alert, GCS 15, non-toxic, mild distress Head: normocephalic, atraumatic Eyes: bilateral eye normal inspection, bilateral eye PERRL, bilateral eye EOMI ENT: normal ENT inspection, normal pharynx, normal voice, moist mucus membranes Neck: normal inspection, full range of motion, supple Respiratory: normal inspection, lungs clear, normal breath sounds, no respiratory distress, no retraction, no wheezing, speaking full sentences, chest symmetrical Cardiovascular #1: normal inspection, regular rate, rhythm, no edema, normal capillary refill Cardiovascular #2: 2+ radial (R), 2+ radial (L) Gastrointestinal: soft, other - Left lower quadrant tenderness, no other tenderness in abdomen no guarding or rigidity normal bowel sounds nondistended Genitourinary: no CVA tenderness Musculoskeletal: normal inspection, back normal, normal range of motion, non- tender Neurologic: normal inspection, alert, oriented x3, responsive, motor strength/ tone normal, sensory intact, normal gait, speech normal Psychiatric: normal inspection, judgement/insight normal, memory normal Skin: normal inspection, normal color, no rash, warm/dry, well hydrated, normal turgor Medical Decision Making Diagnostic Impression: Primary Impression: Abdominal pain ER Course 27-year-old male with abdominal pain Differential Diagnosis: Gastritis, gastroenteritis, cholecystitis, appendicitis, diverticulitis, UTI/ pyelo Plan: Basic labs, ua, pain control, IVF CT abdopelvis ER course: Patient has remained stable during ED stay. ct NEG Pain improved. Repeat abdominal exam is nontender. Disposition: Patient is to be discharged to home. Patient is instructed to follow up with their primary care doctor within 5 days. Strict return precautions discussed with patient such as fever, chills, worsening/severe abdominal pain, nausea, vomiting, black or bloody stools, which may indicate severe illness. Patient verbalizes understanding and agrees with plan. Please note that this Emergency Department Report was dictated using [employer] and custodian supervisor technology software, occasionally this can lead to erroneous entry secondary to interpretation by the dictation equipment Laboratory Tests Test 12/26/17 00:10 White Blood Count 9.1 K/UL (4.8-10.8) Red Blood Count 5.22 M/UL (4.70-6.10) Hemoglobin 14.6 G/DL (14.2-18.0) Hematocrit 43.8 % (42.0-52.0) Mean Corpuscular Volume 84 FL (80-99) Mean Corpuscular Hemoglobin 28.0 PG (27.0-31.0) Mean Corpuscular Hemoglobin Concent 33.4 G/DL (32.0-36.0) Red Cell Distribution Width 12.0 % (11.6-14.8) Platelet Count 263 K/UL (150-450) Mean Platelet Volume 6.8 FL (6.5-10.1) Neutrophils (%) (Auto) 64.4 % (45.0-75.0) Lymphocytes (%) (Auto) 27.3 % (20.0-45.0) Monocytes (%) (Auto) 4.6 % (1.0-10.0) Eosinophils (%) (Auto) 2.1 % (0.0-3.0) Basophils (%) (Auto) 1.6 % (0.0-2.0) Urine Color Pale yellow Urine Appearance Clear Urine pH 6.5 (4.5-8.0) Urine Specific [place] 1.015 (1.005-1.035) Urine Protein Negative (NEGATIVE) Urine Glucose (UA) Negative (NEGATIVE) Urine Ketones Negative (NEGATIVE) Urine Occult Blood Negative (NEGATIVE) Urine Nitrite Negative (NEGATIVE) Urine Bilirubin Negative (NEGATIVE) Urine Urobilinogen Normal MG/DL (0.0-1.0) Urine Leukocyte Esterase Negative (NEGATIVE) Sodium Level 137 MMOL/L (136-145) Potassium Level 3.5 MMOL/L (3.5-5.1) Chloride Level 102 MMOL/L (98-107) Carbon Dioxide Level 29 MMOL/L (21-32) Anion Gap 6 mmol/L (5-15) Blood Urea Nitrogen 19 mg/dL (7-18) H Creatinine 0.8 MG/DL (0.55-1.30) Estimate Glomerular Filtration Rate > 60 mL/min (>60) Glucose Level 113 MG/DL (74-106) H Calcium Level 9.3 MG/DL (8.5-10.1) Total Bilirubin 0.3 MG/DL (0.2-1.0) Aspartate Amino Transferase (AST) 14 U/L (15-37) L Alanine Aminotransferase (ALT) 23 U/L (12-78) Alkaline Phosphatase 114 U/L (46-116) Total Protein 7.3 G/DL (6.4-8.2) Albumin 4.2 G/DL (3.4-5.0) Globulin 3.1 g/dL Albumin/Globulin Ratio 1.4 (1.0-2.7) Lipase 106 U/L (73-393) Urine Opiates Screen Negative (NEGATIVE) Urine Barbiturates Screen Negative (NEGATIVE) Phencyclidine (PCP) Screen Negative (NEGATIVE) Urine Amphetamines Screen Negative (NEGATIVE) Urine Benzodiazepines Screen Negative (NEGATIVE) Urine Cocaine Screen Negative (NEGATIVE) Urine Marijuana (THC) Screen Positive (NEGATIVE) H CT/MRI/US Diagnostic Results CT/MRI/US Diagnostic Results : Imaging Test Ordered: CT ABDO PELVIS Impression CT ABDOMEN & PELVIS With Contrast: INDICATION: TECHNIQUE: Multiple, contiguous axial cuts of the abdomen and pelvis are obtained from the lung bases to the ischial tuberosities following the administration of IV contrast. Sagittal and coronal reformatted images are available. COMPARISON: FINDINGS: The lung bases are clear. The liver and spleen are normal in size and free of mass lesions. The gallbladder, bile ducts and pancreas are normal. The adrenal gland are unremarkable. The kidneys are normal in size and contour. No lesion or hydronephrosis. The appendix is unremarkable, as is the rest of the GI tract. Aorta is normal caliber. No adenopathy or extraluminal air. The osseous structures are normal IMPRESSION: Normal enhanced CT of the abdomen and pelvis. Last Vital Signs Date Time Temp Pulse Resp B/P (MAP) Pulse Ox O2 Delivery O2 Flow Rate FiO2 12/25/17 23:29 98.4 88 16 126/82 98 Room Air 98.4 Disposition: HOME, SELF-CARE Condition: Improved Referrals: [facility] ([facility]P) Mike Ng M.D. Dec 25, 2017 23:50
[2017-12-26 00:22] LABS: APPEARANCE,URINE CLEAR; BILIRUBIN, URINE NEGATIVE (NEGATIVE); COLOR,URINE PALE YELLOW; GLUCOSE, URINE (UA) NEGATIVE (NEGATIVE); KETONES,URINE NEGATIVE (NEGATIVE); LEUKOCYTE ESTERASE ,URINE NEGATIVE (NEGATIVE); NITRITE,URINE NEGATIVE (NEGATIVE); PH,URINE 6.5 (4.5-8.0); PROTEIN,URINE NEGATIVE (NEGATIVE); UROBILINOGEN,URINE NORMAL MG/DL (0.0-1.0)
[2017-12-26 00:23] LABS: BASOPHILS % (AUTO) 1.6 % (0.0-2.0); EOSINOPHILS % (AUTO) 2.1 % (0.0-3.0); HEMATOCRIT 43.8 % (42.0-52.0); HEMOGLOBIN 14.6 G/DL (14.2-18.0); LYMPHOCYTES % (AUTO) 27.3 % (20.0-45.0); MEAN CORPUSCULAR VOLUME 84 FL (80-99); MONOCYTES % (AUTO) 4.6 % (1.0-10.0); NEUTROPHILS % (AUTO) 64.4 % (45.0-75.0); PLATELET COUNT 263 K/UL (150-450); RED BLOOD COUNT 5.22 M/UL (4.70-6.10); WHITE BLOOD COUNT 9.1 K/UL (4.8-10.8)
[2017-12-26 00:32] LABS: ANION GAP 6 mmol/L (5-15); BLOOD UREA NITROGEN 19 mg/dL (7-18); CALCIUM 9.3 MG/DL (8.5-10.1); CARBON DIOXIDE 29 MMOL/L (21-32); CHLORIDE 102 MMOL/L (98-107); CREATININE 0.8 MG/DL (0.55-1.30); POTASSIUM 3.5 MMOL/L (3.5-5.1); SODIUM 137 MMOL/L (136-145)
[2017-12-26 00:36] LABS: ALANINE AMINOTRANSFERASE 23 U/L (12-78); ALBUMIN 4.2 G/DL (3.4-5.0); ALBUMIN/GLOBULIN RATIO 1.4 (1.0-2.7); ALKALINE PHOSPHATASE 114 U/L (46-116); ASPARTATE AMINO TRANSFERASE 14 U/L (15-37); BILIRUBIN,TOTAL 0.3 MG/DL (0.2-1.0)
[2017-12-26] MEDS ORDERED: ZOFRAN ODT4 MG ORAL (01:30)
[2017-12-26] MEDS ORDERED: Dicyclomine HCl 10mg/5ml oral soln ORAL ONE (01:30)
[2017-12-26] MEDS ORDERED: Mylanta II UD 30ml ORAL ONE (01:30)
[2017-12-26] MEDS ORDERED: Lidocaine 2% Visc 15ml soln ORAL ONE (01:30)
[2017-12-26] MEDS ORDERED: PEPCID40 MG PO (01:30)
[2017-12-26 01:40] VITALS: BP 114/40
[2017-12-26 01:49] VITALS: BP 114/40
--- NOTE | 2017-12-26 10:16 | Diagnostic Imaging Report ---
Indication: Abdominal pain Technique: CT of the abdomen and pelvis utilizing automated exposure control with intravenous contrast. Venous scanning performed. CT dose: Total DLP 545.59 mGycm; CTDI vol 11.66 mGy Comparison: None Findings: Imaged lung bases are clear. Heart size is within normal limits. No pericardial effusion. There is a subcentimeter well-circumscribed low-attenuation lesion in the right hepatic lobe too small to fully characterize but likely a simple hepatic cyst. No additional focal hepatic lesion is appreciated on this single phase study. Hepatic veins and portal veins appear patent. Gallbladder is contracted, limiting its evaluation however it is grossly unremarkable in appearance. Adrenal glands, spleen and pancreas grossly unremarkable. Kidneys enhance symmetrically. No urinary tract stone or hydronephrosis bilaterally. Bladder unremarkable in appearance. No evidence of free intraperitoneal air or fluid. There is no evidence of bowel obstruction. The appendix is normal. No appreciable abnormal bowel wall thickening although evaluation is limited without oral contrast. No pathologically enlarged lymphadenopathy. Abdominal aorta normal in caliber. There are remote/healed fracture deformities of the right posterior ninth through 11th ribs. No acute osseous abnormality seen. IMPRESSION: No definite evidence of acute intra-abdominal pathology. Incidental findings as above. This corresponds with the statrad preliminary report. The CT scanner at [facility] is accredited by the [employer] and the scans are performed using protocols designed to limit radiation exposure to as low as reasonably achievable to attain images of sufficient resolution adequate for diagnostic evaluation.
== END 2017-12-26 01:51 | disposition home or self-care (01) ==
LOC: EMR 23:20
DX: R10.9 Unspecified abdominal pain (principal); Z87.19 Personal history of other diseases of the digestive system
CPT/HCPCS: 36415; 74177; 80053; 80307; 81003; 83690; 85025; 96374; 96375; 99284; J2405; Q9967; S0028

== ENCOUNTER 2018-11-28 19:06 | Emergency (ER) | payer OTHER ==
[~2018-11-28] VITALS: Ht 162.6 cm; Wt 72.6 kg
[~2018-11-28 19:06] MED LIST changes: +ONDANSETRON ODT4 MG BC; +RANITIDINE HCL150 MG ORAL; +ZOFRAN ODT4 MG ORAL
[2018-11-28 19:27] VITALS: BP 123/72
--- NOTE | 2018-11-28 19:30 | NUR ---
ED Nurse Note: pt walked in due to chest tightening and shortness of breath started 1 hour ago. pt neruo is alert and oriented times 4. pupiles are rounds andd reactive to light and accomodating. pt respritory patern and rate are within normal limints with no adventitious sounds noted. pt heart tones such as S1 and S2 noted with no abnormalities, heart rate and pattern are within normal limits. pt denies pain, however pt complain of chest tightness.
[2018-11-28 19:48] VITALS: BP 125/70
--- NOTE | 2018-11-28 19:49 | NUR ---
ER DISCHARGE NOTE: Patient is cleared to be discharged per ERMD, pt is aox4, on room air, with stable vital signs. pt was given dc and prescription instructions, pt was able to verbalize understanding, pt id band removed without complications. pt is able to ambulate with steady gait. pt took all belongings.
--- NOTE | 2018-11-28 21:24 | Emergency Room Report ---
History of Present Illness General Chief Complaint: Palpitations Source: Patient Present Illness HPI 28-year-old male presents ED for evaluation. Complaining of palpitations and heart racing since this morning. Feels chest tightness at times denies any shortness of breath. States that he no longer uses amphetamines, has tried to quit marijuana and last use was one week ago. Admits to alcohol use yesterday. States he also does feel anxious. History of anxiety. Does not want to take medication for his anxiety. Denies SI or HI. No other aggravating relieving factors. Denies any other associated symptoms Allergies: Coded Allergies: No Known Allergies (Unverified , 02/12/17) Patient History Past Medical History: GERD, psych hx Past Surgical History: none Pertinent Family History: none Social History: Reports: alcohol use, drug use; Denies: smoking Immunizations: UTD Reviewed Nursing Documentation: PMH: Agreed; PSxH: Agreed Nursing Documentation-PMH Hx Gastrointestinal Problems: Yes - GERD, gastritis Review of Systems All Other Systems: negative except mentioned in HPI Physical Exam Vital Signs Date Time Temp Pulse Resp B/P (MAP) Pulse Ox O2 Delivery O2 Flow Rate FiO2 11/28/18 19:17 98.4 94 16 123/72 99 Room Air Sp02 EP Interpretation: reviewed, normal General Appearance: no apparent distress, alert, GCS 15, non-toxic Head: normocephalic, atraumatic Eyes: bilateral eye normal inspection, bilateral eye PERRL ENT: hearing grossly normal, normal pharynx, no angioedema, normal voice Neck: full range of motion, supple/symm/no masses Respiratory: chest non-tender, lungs clear, normal breath sounds, speaking full sentences Cardiovascular #1: regular rate, rhythm, no edema Cardiovascular #2: 2+ carotid (R), 2+ carotid (L), 2+ radial (R), 2+ radial (L) , 2+ dorsalis pedis (R), 2+ dorsalis pedis (L) Gastrointestinal: normal bowel sounds, non tender, soft, non-distended, no guarding, no rebound Rectal: deferred Genitourinary: normal inspection, no CVA tenderness Musculoskeletal: back normal, gait/station normal, normal range of motion, non- tender Neurologic: alert, oriented x3, responsive, motor strength/tone normal, sensory intact, speech normal Psychiatric: judgement/insight normal, memory normal, no suicidal/homicidal ideation, no delusions, anxious Reflexes: 3+ bicep (R), 3+ bicep (L), 3+ tricep (R), 3+ tricep (L), 3+ knee (R) , 3+ knee (L) Skin: normal color, no rash, warm/dry, well hydrated Lymphatic: no adenopathy Medical Decision Making Diagnostic Impression: Primary Impression: Palpitations Additional Impression: Anxiety ER Course Hospital Course 28-year-old M presents ED complaining of palpitations Differential diagnoses include: afib, Vtach, SVT, anxiety, dehydration Clinical course Patient placed on stretcher. After initial history and physical I ordered EKG EKGnormal sinus rhythm no acute ischemic changes interpreted by me, no arrhythmia I reviewed EMR. Patient has been here previously for similar presentation. Patient has had full cardiac workups which have been unremarkable Patient has no cardiac risk factors. Has normal heart rate with normal blood pressure here. I see no reason to repeat cardiac workup at this time Discussed findings with patient. Patient is denying any further methamphetamine use and marijuana use at this time. Possibility for withdrawal symptoms versus anxiety I offered Xanax here for his symptoms and patient declined. Patient declines any prescriptions. states he'll follow-up with his PMD. safe for discharge with close outpatient followup. we'll provide mental health referrals I. I feel this is a highly complex case requiring extensive working including EKG/Rhythm strip, Xray/CT/US, Blood/urine lab work, repeat exams while in ED, and administration of strong opiates/narcotics for pain control, admission to hospital or close patient follow up. Diagnosis - palpitations, anxiety Stable and discharged to home. Instructed to followup with PMD, psych. Return to ED if symptoms recur or worsen EKG Diagnostic Results Rate: normal Rhythm: NSR ST Segments: no acute changes ASA given to the pt in ED: No Rhythm Strip Diag. Results EP Interpretation: yes Rhythm: NSR, no PVC's, no ectopy Last Vital Signs Date Time Temp Pulse Resp B/P (MAP) Pulse Ox O2 Delivery O2 Flow Rate FiO2 11/28/18 19:48 98.4 88 16 125/70 99 Room Air Status: improved Disposition: HOME, SELF-CARE Condition: Stable Referrals: [facility] PHYSICIAN (PCP[facility] Psych ER - Peds ER - [facility] Intake Hotline - Patient Instructions: Panic Attacks Mainor Bass MD Nov 28, 2018 21:24
== END 2018-11-28 19:48 | disposition home or self-care (01) ==
LOC: EMR 19:30
DX: R00.2 Palpitations (principal); R07.89 Other chest pain; F12.90 Cannabis use, unspecified, uncomplicated; Z72.89 Other problems related to lifestyle; F41.9 Anxiety disorder, unspecified; F15.11 Other stimulant abuse, in remission
CPT/HCPCS: 93005; 99282

== ENCOUNTER 2019-06-12 16:39 | Emergency (ER) | payer OTHER ==
[~2019-06-12] VITALS: Ht 160 cm; Wt 68.0 kg
[2019-06-12 16:44] VITALS: BP 111/72
--- NOTE | 2019-06-12 16:54 | NUR ---
ED Nurse Note: Pt came in due to SOB and chest tightness for a couple of days. Hx of anxiety and depression and is not taking meds. AAO x4 and ambulates with steady gait. No respiratory distress and speaks in full sentences.
--- NOTE | 2019-06-12 18:09 | Diagnostic Imaging Report ---
EXAM: XR Chest, 1 View CLINICAL HISTORY: CP TECHNIQUE: Frontal view of the chest. COMPARISON: 12 12 17 FINDINGS: Lungs: Unremarkable. No consolidation. Pleural space: Unremarkable. No pneumothorax. Heart: Unremarkable. No cardiomegaly. Mediastinum: Unremarkable. Bones joints: Unremarkable. IMPRESSION: No acute findings.
[2019-06-12 18:52] VITALS: BP 125/70
--- NOTE | 2019-06-12 18:52 | NUR ---
ER DISCHARGE NOTE: Patient is cleared to be discharged per pa, pt is aox4, on room air, with stable vital signs. pt was given dc and prescription instructions, pt was able to verbalize understanding, pt id band removed. pt is able to ambulate with steady gait. pt took all belongings.
--- NOTE | 2019-06-12 20:03 | Emergency Room Report ---
History of Present Illness General Chief Complaint: Dyspnea/Respdistress Source: Patient Present Illness HPI 28-year-old male of chest tightness and shortness of breath when patient was trying to fall asleep earlier today. Severity 3 out of 10, relieving or aggravating factors. Non-exertional. Denies family history of sudden cardiac . H/o anxiety and depression- denies SI or HI Allergies: Coded Allergies: No Known Allergies (Unverified , 06/12/19) Patient History Past Medical History: none Past Surgical History: none Social History: Reports: smoking - marijuana, alcohol use Nursing Documentation-[facility] Past Medical History: No History, Except For Hx Gastrointestinal Problems: Yes - GERD, gastritis Review of Systems All Other Systems: negative except mentioned in HPI Physical Exam Vital Signs Date Time Temp Pulse Resp B/P (MAP) Pulse Ox O2 Delivery O2 Flow Rate FiO2 06/12/19 16:44 99.3 79 18 111/72 (85) 98 Room Air Sp02 EP Interpretation: reviewed, normal General Appearance: no apparent distress, alert, GCS 15, non-toxic Respiratory: chest non-tender, lungs clear, normal breath sounds, speaking full sentences Cardiovascular #1: regular rate, rhythm, no edema Gastrointestinal: normal bowel sounds, non tender, soft, non-distended, no guarding, no rebound Skin: no rash, warm/dry Medical Decision Making PA Attestation This patient was seen under the direct supervision of Dr. Poon, who directed all aspects of care and diagnostic interpretation. Diagnostic Impression: Primary Impression: Anxiety ER Course ED course HPI: 28-year-old male of chest tightness and shortness of breath when patient was trying to fall asleep earlier today. Severity 3 out of 10, relieving or aggravating factors. Non-exertional. Denies family history of sudden cardiac . H/o anxiety and depression- denies SI or HI Ddx: anxiety, chest wall pain, AR, pneumothorax HPI & PE consistent with: Anxiety Orders/ Interventions: Case discussed with Dr. Poon, who agreed with ER course and disposition. Patient has low cardiac risk factor, low HEART score. EKG shows NSR 68, sinus arrhythmia. CXR shows no evidence of acute cardiopulmonary disease. Do not suspect cardiac etiology of pain. Patient monitored in the ER for 1.5 hours, symptoms completely resolved. Disposition: At this time pt. is stable for d/c to home. Will provide printed patient care instructions, and any necessary prescriptions. Care plan and follow up instructions have been discussed with the patient prior to discharge. Please note that this Emergency Department Report was dictated using [employer] light installer technology software, occasionally this can lead to erroneous entry secondary to interpretation by the dictation equipment. EKG Diagnostic Results EKG Time: 16:54 Rate: normal - HR 68 Rhythm: NSR ST Segments: no acute changes PA Scribe Text Interpreted by Dr. Poon Chest X-Ray Diagnostic Results Chest X-Ray Diagnostic Results : Chest X-Ray Ordered: Yes # of Views/Limited/Complete: 1 View Indication: Chest Pain PA Xray: Interpretation reviewed Interpretation: no consolidation, no pneumothorax, no acute cardiopulmonary disease Impression: No acute disease - interpreted by radiology Electronically Signed by: Gabriel Doll PA-C Last Vital Signs Date Time Temp Pulse Resp B/P (MAP) Pulse Ox O2 Delivery O2 Flow Rate FiO2 06/12/19 18:52 99.0 83 15 125/70 100 Room Air Status: unchanged Disposition: HOME, SELF-CARE Condition: Stable Patient Instructions: Panic Attacks Additional Instructions: Follow-up with PCP in 2 days or return to ER if worsening symptoms, new symptoms or sudden change in condition. Gabriel Doll Jun 12, 2019 20:03
--- NOTE | 2019-06-14 17:27 | Cardiology Report ---
APPROVED REPORT EKG Measurement Heart [id number] Normal sinus rhythm with sinus arrhythmia Incomplete right bundle branch block Borderline ECG
== END 2019-06-12 18:52 | disposition home or self-care (01) ==
LOC: EMR 17:55
DX: F41.9 Anxiety disorder, unspecified (principal); F32.9 Major depressive disorder, single episode, unspecified; R07.9 Chest pain, unspecified
CPT/HCPCS: 71045; 93005; Z7502; 99283